=== PATIENT | female | born 1970 | race Caucasian/White ===

== ENCOUNTER 2016-11-13 06:57 | Inpatient (IN) | payer OTHER ==
[2016-11-13] VITALS (7 sets, daily range): BP systolic 127–151; BP diastolic 78–84; PULSE 68–81; RESP 18; Ht 175.3 cm; Wt 88.0 kg
[~2016-11-13] VITALS: Ht 175.3 cm; Wt 88.0 kg
--- NOTE | 2016-11-13 07:11 | ERD ---
ER Documentation Chief Complaint Date/Time DATE: 11/13/16 TIME: 07:07 Chief Complaint MECHANICAL FALL AT STORE HPI This is a 46-year-old female with a known history of hypertension and non- insulin-dependent diabetes mellitus that was brought into the emergency department by EMS after she had a mechanical slip and fall a gas station just prior to arrival. The patient stated there was some gas that was on the floor which resulted in her slipping and landing on her buttocks and hitting her head. She is complaining of a posterior headache. She states the headache is 6 out of 10 in intensity. She has no changes in vision. She has not experienced any nausea or emesis. She does not wear glasses or contacts. She was able to ambulate at the scene but the patient is complaining of lower back pain which she states is dull achy sensation was exacerbated with movement and ambulation. The low back pain is 4 out of 10 in intensity with no numbness or tingling of her lower extremities. She is no numbness or tingling of her upper extremities. She denies any abdominal pain. She indicated she did not take her antihypertensive medication upon awakening this morning that she forgot. She denies any chest pain or pressure that radiates to the neck arm back or jaw ROS All systems reviewed and are negative except as per history of present illness. Medications Home Meds Unable to Obtain Active Prescriptions or Reported Meds Allergies Allergies: Coded Allergies: No Known Allergy (Unverified , 11/13/16) PMhx/Soc Medical and Surgical Hx: pt denies Surgical Hx Hx Miscellaneous Medical Probl: Yes (dm, hyperthyroid) Hx Alcohol Use: No Hx Substance Use: No Hx Tobacco Use: No Smoking Status: Never smoker Physical Exam Vitals Vital Signs Date Time Temp Pulse Resp B/P Pulse Ox O2 Delivery O2 Flow Rate FiO2 11/13/16 08:31 78 15 128/71 100 Room Air 11/13/16 08:08 75 10 174/87 100 Nasal Cannula 2.0 11/13/16 07:14 80 228/105 11/13/16 07:00 98.0 88 18 232/115 99 Physical Exam Constitutional:Well-developed. Well-nourished. HEENT:Normocephalic. Atraumatic.Pupils were equal round reactive to light. Moist mucous membranes.No tonsillar exudates. No nasoseptal hematoma. No hemotympanum. Funduscopy exam showed sharp optic disc bilaterally venous pulsations are present peer Neck: No nuchal rigidity. No lymphadenopathy. No posterior cervical spine tenderness or step-offs. Respiratory: Not using accessory muscles of respiration.Lungs were clear to auscultation bilaterally. No rhonchi. No rales. No wheezing. Cardiovascular: Regular rate regular rhythm.No murmurs. No rubs were appreciated.S1, S2 normal. Distal pulses are palpable 2+ bilaterally. GI: Abdomen was soft. Nontender. Non Distended. No pulsatile abdominal masses or bruits. No rebound. No guarding. Bowel sounds were present and normal. No flank ecchymosis. No periumbilical ecchymosis Muscle skeletal: Full range of motion of both the upper and lower extremities bilaterally.Normal muscle tone.No assymetrical calf tenderness or swelling. Reproducible tenderness over L4-L5 with no tenderness with palpation or percussion of the thoracic spinous processes. Lower extremities are of equal length and symmetrical with no internal or external rotation. Patient was able to ambulate more than 4 steps in the emergency department this did exacerbate pain of her lower lumbar spine. Skin: No petechia, no purpura. No lesions on the palms or the soles of the feet. No maculopapular rash. NEURO: Patient was alert, awake, orientated x3.No facial droop. Gait observed and normal with no ataxia.Speech had regular rate and rhythm. No focal neurological deficits. Result Diagram: 11/13/16 0750 Results 24 hrs Laboratory Tests Test 11/13/16 07:50 Activated Partial Thromboplast Time 34.8Sec Alanine Aminotransferase (ALT/SGPT) 26IU/L Albumin 2.9g/dl Albumin/Globulin Ratio 0.80 Alkaline Phosphatase 130IU/L Anion Gap 14 Aspartate Amino Transf (AST/SGOT) 26IU/L Blood Urea Nitrogen 41mg/dl Calcium Level 8.2mg/dl Carbon Dioxide Level 22mmol/L Chloride Level 110mmol/L Creatinine 4.94mg/dl Direct Bilirubin 0.00mg/dl Globulin 3.60g/dl Glucose Level 116mg/dl INR International Normalized Ratio 0.85 Indirect Bilirubin 0.1mg/dl Potassium Level 4.7mmol/L Prothrombin Time 11.6Sec Prothrombin Time Ratio 0.9 Sodium Level 141mmol/L Total Bilirubin 0.1mg/dl Total Protein 6.5g/dl Troponin I 0.018ng/ml Current Medications Medications (Trade) Dose Ordered Sig/Akila Route PRN Reason Start Time Stop Time Status Last Admin Dose Admin Acetaminophen/ Hydrocodone Bitart (Luray (5/325)) 1 tab ONCE ONCE PO 11/13/16 07:30 11/13/16 07:31 DC 11/13/16 07:20 Clonidine (Catapres) 0.1 mg ONCE ONCE PO 11/13/16 07:30 11/13/16 07:31 DC 11/13/16 07:20 Hydralazine HCl (Apresoline) 10 mg ONCE ONCE IV 11/13/16 08:30 11/13/16 08:31 DC 11/13/16 08:14 Aspirin (Aspirin) 325 mg ONCE ONCE PO 11/13/16 08:30 11/13/16 08:31 DC 11/13/16 08:14 Nitroglycerin (Nitroglycerin (Sl Tab) 0.4 Mg) 1 tab Q5M UP TO 3 DOSES PRN SL CHEST PAIN 11/13/16 09:00 Procedures/MDM This patient presented to the emergency department with blunt head trauma. CT scan of the head showed no intracerebral hemorrhage. I did obtain radiographic imaging of the lumbar spine which did not indicate a compression fracture. The patient received Luray for analgesia control. Lumbar x-ray reviewed by the radiologist indicated the follow: 1. Decreased bone mineral density without radiographic evidence for acute fracture. 2. Degenerative disk disease throughout the lumbar spine most pronounced at L4- 5 with moderate disk space narrowing asymmetric to the right. 3. Cholelithiasis. This patient also presented to the emergency department with severely elevated blood pressure which could have been exacerbation of her pain as well as the patient forgetting to take her antihypertensive medications prior to arrival. However my differential diagnosis included but was not limited to conditions that could end-organ damage such as acute coronary syndrome, acute pulmonary edema, aortic dissection, subarachnoid hemorrhage, intracerebral hemorrhage, cerebral infarction, withdrawal syndromes from beta blockers, or states of catecholamine excess such as pheochromocytoma or drug intoxication. Ancillary lab work was obtained. There was elevation in the BUN and creatinine to suggest acute renal failure. The patient does state she has a history of renal failure but is not on dialysis. She states her electrophysiology technician is at all of you and is unaware of her normal BUN and creatinine level. The cardiac enzyme was normal. 12 Lead EKG tracing ordered and reviewed by myself showed: Normal sinus rhythm of 75 bpm and no arrhythmia. AK interval normal. QRS duration normal. ST segment elevation isolated to lead II with no elevation in aVF or lead III. The ST segment elevation had artifact. There is no reciprocal changes. No ST segment depression. No changes consistent with acute ischemia. Given the changes in the EKG that was read at 756 as an acute MO I did phone the vat cleaner Dr. Pastor. Given the patient's clinical findings and absence of reciprocal changes with ST segment elevation isolated to one lead with underlying artifact a code STEMI was not called as this did not appear to be a result of myocardial ischemia. The patient's blood pressure had improved improved after clonidine but she was given 10 mg of hydralazine and 325 mg of aspirin and NTG. She had been placed on a graduate assistant athletic trainer. I repeated the 12-lead EKG at 8:18 AM. 12 Lead EKG tracing ordered and reviewed by myself showed: Normal sinus rhythm of 79 bpm and no arrhythmia. AK interval normal. QRS duration normal. No ST segment elevation No ST segment depression. No changes consistent with acute ischemia. The patient ancillary laboratory work indicated there was acute renal failure with a BUN of 41 and a creatinine of 4.94. Given that the patient was hypotensive and could not rule out hypertensive emergency at this time as this could be result of end organ damage. She had received IV hydralazine which did improve her blood pressure but the patient will be continued to be monitored with serial 12-lead EKG tracings and further evaluation into the new renal failure and monitoring of the patient's chest pain. The patient will be admitted to the hospitalist Dr. Duong. Departure Diagnosis: Primary Impression: Lumbar sprain Additional Impressions: Blunt head trauma Hypertensive emergency, no CHF Acute renal failure Chest pain Condition: Serious FARZADELLIE HERNANDEZA Nov 13, 2016 07:11
[2016-11-13] MEDS ORDERED: HYDROCODONE/APAP (5/325) TAB PO ONE (07:30)
--- NOTE | 2016-11-13 07:59 | RADRPT ---
PROCEDURE: XR Lumbar Spine. CLINICAL INDICATION: Fall TECHNIQUE: Three views of the lumbar spine are available for review COMPARISON: None available FINDINGS: The normal lumbar lordosis is preserved. The osseous structures are demineralized. There is mild sco liosis convex left. Spondylosis seen throughout the lumbar spine with mild disk space narrowing at at L3-L4 and moderate disk space narrowing at L4-5. Mild loss of height is seen at T11, likely chron ic in nature, although age indeterminate on radiographs. The productive changes seen throughout the lumbar spine. No radiopaque foreign body is identified. The vertebral body heights are all normal. Facet arthropathy seen throughout the lumbar spine. On the frontal view, there is normal alignment . Paraspinous soft tissues are grossly unremarkable. A gallstone projects in the right upper quadra nt. IMPRESSION: 1. Decreased bone mineral density without radiographic evidence for acute fracture. 2. Degenerative disk disease throughout the lumbar spine most pronounced at L4-5 with moderate disk space narrowing asymmetric to the right. 3. Cholelithiasis. RPTAT: RR .John Luque MD, Date Time Electronically viewed and signed by .John Luque MD, on 11/13/2016 07:59 .d/
--- NOTE | 2016-11-13 08:02 | RADRPT ---
PROCEDURE: CT Brain without. CLINICAL INDICATION: Fall TECHNIQUE: A CT of the brain was performed utilizing axial sections from the skull base through th e vertex without contrast. The scan was reviewed in soft tissue brain and high frequency resolution bone algorithm windows. Images were reviewed on a high-resolution PACS workstation. images. The c alculated radiation dose measures 630.20 mGy centimeters. The CTDI measures 44.03 mGy. One or more of the following dose reduction techniques were used: - Automated exposure control. - Adjustment of the mA and/or kV according to patient size . - Use of iterative reconstruction technique. Images were reviewed on a high-resolution PACS workstation COMPARISON: None available FINDINGS: The ventricles and sulci are symmetric and normal in size and morphology. There is no evidence of i ntracranial hemorrhage, mass effect, edema or midline shift. No abnormal intra-axial or extra-axial fluid collections are seen. The density of the brain is normal and the zimmer/white matter different iation is well preserved. Brainstem and posterior fossa structures are intact. The cerebellar tons ils are minimally low-lying. The osseous structures and visualized paranasal sinuses are unremarkabl e. The surrounding soft tissue scalp and bony calvarium are intact and normal. IMPRESSION: 1. No acute intracranial findings. RPTAT: RR .John Luque MD, Date Time Electronically viewed and signed by .John Luque MD, MD on 11/13/2016 08:02 .d/
[2016-11-13] MEDS ORDERED: ASPIRIN 325 MG TAB PO ONE (08:30)
[2016-11-13] MEDS ORDERED: hydrALAzine 20 MG INJ IV ONE (08:30)
[2016-11-13 08:36] LABS: ALBUMIN 2.9 g/dl (3.3-4.9); POTASSIUM 4.7 mmol/L (3.5-5.1)
[2016-11-13 08:38] LABS: CREATININE 4.94 mg/dl (0.44-1.00)
[2016-11-13 08:39] LABS: ALBUMIN/GLOBULIN RATIO 0.8; BILIRUBIN,INDIRECT 0.1 mg/dl (0-1.1); BILIRUBIN,TOTAL 0.1 mg/dl (0.2-1.3); CALCIUM 8.2 mg/dl (8.4-10.2); TOTAL PROTEIN 6.5 g/dl (6.1-8.1)
[2016-11-13 08:51] LABS: TROPONIN-I 0.018 ng/ml (0.00-0.12)
[2016-11-13 08:54] LABS: INR 0.85; PROTIME 11.6 Sec (12.2-14.2); PT RATIO 0.9
[2016-11-13 08:55] LABS: PARTIAL THROMBOPLASTIN TIME 34.8 Sec (25.0-35.0)
[2016-11-13] MEDS ORDERED: NITROGLYCERIN (SL) 0.4 MG TAB SL PRN ×2 (09:00→11:00)
[2016-11-13 09:15] LABS: BASOPHILS % 0.4 % (0.0-2.0); EOSINOPHILS # 0.2 10^3/ul (0.0-0.5); EOSINOPHILS % 2.1 % (0.0-7.0); HEMATOCRIT 41.5 % (37.0-47.0); HEMOGLOBIN 13.9 g/dl (12.0-16.0); LYMPHOCYTES # 1.5 10^3/ul (0.8-2.9); LYMPHOCYTES % 12.4 % (15.0-51.0); MEAN CORPUSCULAR HEMOGLOBIN 31.3 pg (29.0-33.0); MEAN CORPUSCULAR HGB CONC 33.6 g/dl (32.0-37.0); MEAN CORPUSCULAR VOLUME 93.1 fl (82.0-101.0); MEAN PLATELET VOLUME 8.5 fl (7.4-10.4); MONOCYTE # 0.4 10^3/ul (0.3-0.9); MONOCYTES % 3.5 % (0.0-11.0); NEUTROPHIL # 9.7 10^3/ul (1.6-7.5); NEUTROPHILS % 81.6 % (39.0-77.0); PLATELET COUNT 242 10^3/UL (140-440); RED BLOOD COUNT 4.46 10^6/ul (4.20-5.40); RED CELL DISTRIBUTION WIDTH 15.3 % (11.5-14.5); UNCORRECTED WBC 11.9 10^3/ul (4.8-10.8); WHITE BLOOD COUNT 11.9 10^3/ul (4.8-10.8)
[2016-11-13 09:29] LABS: CONDITION 1; LH ANALYZER COMMENTS 1
[2016-11-13] MEDS ORDERED: ACETAMINOPHEN 325 MG TAB PO PRN ×2 (09:30→11:00)
[2016-11-13] MEDS ORDERED: ONDANSETRON 4 MG INJ IV PRN ×2 (09:30→11:00)
[2016-11-13] MEDS ORDERED: SOD CHLORIDE 0.45% 1,000 ML IV SCH (10:55)
[2016-11-13] MEDS ORDERED: LORAZEPAM 0.5 MG TAB PO PRN (11:00)
[2016-11-13] MEDS ORDERED: hydrALAzine 20 MG INJ IV PRN ×2 (11:00→21:00)
[2016-11-13] MEDS ORDERED: DOCUSATE SODIUM 100 MG CAP PO PRN (11:00)
[2016-11-13] MEDS ORDERED: ACETAMINOPHEN 650 MG SUPP PR PRN (11:00)
[2016-11-13] MEDS ORDERED: NACL 0.9% 3 ML SYG IV SCH (11:00)
[2016-11-13] MEDS ORDERED: BISACODYL (EC) 5 MG TAB PO PRN (11:00)
[2016-11-13 12:19] LABS: CK-MB 2.39 ng/ml (0.0-2.4)
[2016-11-13] MEDS: OXYCODONE/ACETAMINOPHEN (5/325) TAB PO PRN ×2 (12:21→20:11)
[2016-11-13 12:22] LABS: TROPONIN-I 0.021 ng/ml (0.00-0.12)
[2016-11-13] MEDS ORDERED: SOD CHLORIDE 0.45% 1,000 ML IV ONE (12:34)
[2016-11-13] MEDS: morphine 2 MG INJ IV PRN (14:16)
--- NOTE | 2016-11-13 14:54 | CONS ---
DATE OF ADMISSION: 11/13/2016 DATE OF CONSULTATION: 11/13/2016 NEPHROLOGY CONSULTATION REASON FOR CONSULTATION: Chronic kidney disease. HISTORY OF PRESENT ILLNESS: This is a 46-year-old female with a past medical history of CKD stage V with a baseline EGFR of around 10 mL per minute secondary to diabetic nephropathy, history of hyper tension, history of diabetes who presents to [facility] after undergoing a mechani avni fall. The patient states she was at the gas station where she slipped and fell. The patient sa id she landed on her buttocks and hit her head. She was complaining of headache. Following the fal l, the paramedics arrived and the patient was brought to the [facility] Emergency Room. Up on arrival, patient had a CT scan of the brain which showed no acute findings. A lumbar x-ray was a lso performed which showed no acute fracture. There is evidence of cholelithiasis. In the emergenc y room, the patient was hypertensive with a systolic pressure of 200. The patient was given hydrala zine, clonidine, Barnhart, and admitted up to telemetry for further evaluation. In terms of the patient's medical history, she has underlying history of CKD stage V with a GFR of 1 0 mL per minute. She is followed by concrete block plant supervisor at [facility]. The patient is pending a fistula p lacement in December with the anticipation of starting hemodialysis later this year. Currently, the pa hattie denies any overt uremic symptoms. Denies any nausea, vomiting, no metallic taste in the mouth no overt fatigue. The patient has a good appetite. Denies any shortness of breath. PAST MEDICAL HISTORY: As stated above, history of CKD stage V, history of hypertension, history of diabetes, history of anemia, history of mineral bone disorder. PAST SURGICAL HISTORY: None. ALLERGIES: NO KNOWN DRUG ALLERGIES. FAMILY HISTORY: No family history of kidney disease, heart disease. SOCIAL HISTORY: Does not drink, smoke, or do drugs. MEDICATIONS: The patient's medications have been reviewed. REVIEW OF SYSTEMS: A 14-point review of systems was conducted. Pertinent positives as stated in HP I, otherwise negative. PHYSICAL EXAMINATION: VITAL SIGNS: Blood pressure is currently 120/72, respirations 18, pulse 77, temperature 98.6. HEENT: Head is normocephalic. NECK: Supple. HEART: Regular rate. LUNGS: Show diminished breath sounds at the base. ABDOMEN: Soft, nontender to palpation. No rebound or guarding. EXTREMITIES: Negative for clubbing, cyanosis, no edema. DERMATOLOGIC: No rashes. MUSCULOSKELETAL: The patient has tenderness to palpation on the lumbosacral region. NEUROLOGIC: No focal deficits. LABORATORY DATA: The patient has a white count of 11.9, hemoglobin 13.9, hematocrit is 41.5, platel et count 242. Sodium 141, potassium 4.7, chloride 110, BUN 41, creatinine 4.94. BNP of 13,000. Al kaline phosphatase 130. ASSESSMENT AND PLAN: This is a 46-year-old female who presents with: 1. Progressive chronic kidney disease stage V with a baseline EGFR around 10 mL per minute. Curren tly, the patient's renal function appears to be at baseline. Creatinine of 4.94 consistent with an EGFR of 10 mL per minute done by CKD-EPI formulation. The patient had no signs of overt uremia. Th e patient's electrolytes are within normal limits. The patient does not clinically appear to be vol ume overloaded. Recommendation at this point is to continue supportive care. We will continue to r enally dose all meds, avoid nephrotoxins. Will continue gentle IV fluids for 1 liter of half NS. 2. Otherwise will continue to monitor closely. There is no immediate need for any renal replacemen t therapy or dialysis at this time. 3. Mineral bone disorder. We will check a calcium and phosphorus level. Will hold phosphate binde rs at this time. 4. Hypertension in part due to underlying pain. The patient is currently normotensive. Will grace nue pain control. Will monitor blood pressure closely on IV fluids. 5. Mechanical fall with a lumbar strain. Will Continue pain medications. X-rays reviewed 6. Blunt head trauma secondary followup. Continue supportive care. Continue pain control. CT sca n shows no acute pathology. 7. Anxiety disorder. Continue patient on Ativan p.r.n. Thank you, Dr. De Paz for this interesting consult. It will be a pleasure to follow the patient with you throughout the hospital course. Dictated By: DALE VEGA/NTS Conf#: [id number] DID#: [id number]
--- NOTE | 2016-11-13 16:01 | HP ---
DATE OF ADMISSION: 11/13/2016 CLINICAL OUTCOMES MANAGER: Cardiology. CHIEF COMPLAINT: Low back pain and chest discomfort. HISTORY OF PRESENT ILLNESS: This is a 46-year-old female who is a very poor historian with past [facility] history of hypertension and renal insufficiency who was at a gas station and apparently patient slipped and fell on her back. There was no trauma to her head. There was no loss of consciousness . There was no urinary or fecal incontinence. There was no seizure activity. The patient fell on her lumbosacral area and secondary to pain 911 was called and patient was brought into the emergency room at [facility] where she did complain of having chest discomfort. Troponin w as found to be negative. EKG showed normal sinus rhythm ventricle 75, no arrhythmia, ST segment miguel vation isolated in lead 2 with no elevation in aVF or lead 3. No ST segment elevation was artifact. There was no reciprocal changes, no ST segment depressions, no changes consistent with acute ische bk. Dr. Pastor of cardiology was called in the course of the emergency room secondary to ST segment e levation in lead 2 and after evaluation of the EKG, code STEMI was called off. The patient was xochitl melvin with clonidine, aspirin 325 mg, and nitroglycerin and was placed on cardiac monitoring and trop onin was found to be negative. The patient at this time has been admitted to telemetry floor. Her WBC is found to be mildly elevated at 11.9, BUN 41, creatinine 4.94. BNP 13,800. CT of the brain showed no acute intracranial finding and lumber spine x-ray showed decreased bone mi neral density without radiographic evidence of acute fracture, degenerative disk disease throughout the lumbar spine, most pronounced at L4-L5 with moderate disk space narrowing asymmetric to the righ t cholelithiasis. The patient was placed on pain medication and at this time denies having any ches t pain, shortness of breath, nausea, vomiting, diarrhea. No headache, dizziness, lightheadedness. No change in visual acuity, diplopia, photophobia. No abdominal pain, nausea, vomiting, diarrhea. No change in the color of stool. No thoracic pain. The patient continues to complain of having low back pain. There is no numbness or weakness in her extremities. PAST MEDICAL AND SURGICAL HISTORY: 1. Hypertension. 2. Renal insufficiency. MEDICATIONS: The patient does not recall her home medications. No noted phone number of her pharm acy. SOCIAL HISTORY: Negative x3 for smoking, alcohol, illicit drugs. FAMILY HISTORY: Positive for hypertension. REVIEW OF SYSTEMS: As above per HPI, otherwise 12 review of systems has been found to be negative. PHYSICAL EXAMINATION: VITAL SIGNS: Temperature upon arrival to emergency room, temperature 98, pulse 88, respiration 18, blood pressure 232/115, saturation 99%. At this time, temperature 98.0, pulse 87, respiration 18, b lood pressure 131/79, oxygen 99% on room air. GENERAL APPEARANCE: The patient is lying in bed comfortably without any distress. She is awake, al ert, oriented. She is able to answer my questions properly. EYES AND ENT: Conjunctivae and lids are normal. Pupils are normal. Extraocular normal. Hearing g rossly normal. Lips are normal. Oral mucosa is moist. NECK: Supple. Trachea is midline. No lymphadenopathy. RESPIRATORY: Effort is normal. Clear to auscultation bilaterally. CARDIOVASCULAR: Normal S1, S2. Regular rhythm and rate. No murmur, no bruits, no edema. Peripher al pulses, radial pulses palpable. Cap refill is normal. CHEST: Normal expansion of thorax during inspiration. GASTROINTESTINAL: Abdomen is soft, nontender, not distended. Bowel sounds present. No guarding, n o rebound. GENITOURINARY: Deferred. MUSCULOSKELETAL: Upper extremities within normal limits. Lower extremities, decreased range of mot ion secondary to the low back pain. There is no deformity. Sensory is intact. NEUROLOGIC: Cranial nerves II through XII are grossly intact. PSYCHIATRIC: She is awake, alert, oriented. LABORATORY WORK AND IMAGING: Sodium 141, potassium 4.7, chloride 110, bicarbonate 22, BUN 41, creat inine 4.94, glucose 116, calcium 8.2, total bilirubin 0.1, alkaline phosphatase of 130. Troponin ne gative x2. BNP 13,800. Albumin 2.9. PT 11.6, INR 0.85. WBC 11.9, hemoglobin 13.9, hematocrit 41. 5, platelets 242. ASSESSMENT AND PLAN: 1. Low back pain status post fall and no evidence of fracture on this lumbar spine x-ray. 2. Atypical chest pain. This is likely secondary to low back pain, although the patient has a hist ory of hypertension. We will admit the patient to rule out acute coronary syndrome. First 2 tropon ins were negative. Cardiology has been consulted. The patient has been started on aspirin. We sharad l obtain 2D echocardiogram. Follow up cardiology recommendation. As stated above in the H and P, sudheer kuhn was found to have abnormal EKG, in the course of emergency room it was found to be artifact an d there is no evidence of ST elevation. 3. Chronic renal insufficiency. Patient is to follow up with nephrology as outpatient at [facility]. 4. Essential hypertension, better controlled. 5. Leukocytosis. This is likely reactive. We will continue to monitor. The patient is afebrile. 4. Congestive heart failure. Obtain of 2D echocardiogram. At this time, refrain from using any di uretic or ALMITA inhibitor secondary to patient's renal insufficiency. Follow up nephrology recommenda tion. 5. For deep venous thrombosis prophylaxis on heparin. 6. For gastrointestinal prophylaxis, PPI. Total amount of time spent for evaluation and admission workup 40 minutes. Dictated By: YU PINK/LAWRENCE Conf#: [id number] DID#: [id number]
[2016-11-13 17:08] LABS: CK-MB 2.06 ng/ml (0.0-2.4)
[2016-11-13 17:11] LABS: TROPONIN-I 0.022 ng/ml (0.00-0.12)
--- NOTE | 2016-11-13 17:24 | RADRPT ---
Echocardiogram Report Patient Name: STEFANIE TYLER Gender: Female Date: 1970 Study Date: 13-Nov-2016 Director Corporate Communications: Gideon [facility] Location: [id number] Ref. Physician: YU HUBBARD Quality: Technically Difficult Study Procedures: Transthoracic echocardiogram with complete 2D, M-Mode, and doppler examination. Indications: Chest Pain. 2D/M Mode Doppler Measurement Value Normal Ranges Measurement Value Normal Ranges LVIDd 2D 5.1 3.5 - 5.6 cm AV Mean René 1.5 m/sec LVIDs 2D 3.4 2.1 - 4.1 cm AV Mean PG 11.1 mmHg LVPWd 2D 1.4 0.6 - 1.1 cm AV Peak René 2.3 m/sec IVSd 2D 1.3 0.6 - 1.1 cm AV Peak PG 20.9 mmHg AoR Diam 2D 2.6 2.0 - 3.7 cm AV VTI 47.4 cm EDV 2D 125.8 cm3 LVOT Peak René 0.8 m/sec ESV 2D 40.9 cm3 LVOT Peak PG 2.8 mmHg LA Dimen 2D 3.3 2.3 - 4.0 cm MV E Peak René 0.7 m/sec MV A Peak René 1.1 m/sec MV E/A 0.7 MV Decel Time 219 msec MV Decel Hancock 3 MV E/A 0.7 Findings Left Ventricle: Normal left ventricular systolic function. Normal left ventricular cavity size. Mild concentric left ventricular hypertrophy. Ejection fraction is visually estimated at 5560 %. Tissue Doppler/Mitral Doppler indices are consistent with impaired relaxation (Stage I diastolic dysfunction). Right Ventricle: Normal right ventricular size. Normal right ventricular systolic function. Left Atrium: The left atrium is normal in size. Right Atrium: The right atrium is normal in size. Mitral Valve: Mild mitral leaflet calcification. Trace mitral regurgitation. Aortic Valve: Aortic valve not well visualized. No hemodynamically significant aortic stenosis by doppler. Trace aortic valve regurgitation. Tricuspid Valve: Tricuspid valve not well visualized. There is trace tricuspid regurgitation. Pulmonic Valve: There is trace pulmonic regurgitation. Pericardium: Normal pericardium with no significant pericardial effusion. Aorta: Normal aortic root. IVC: The IVC is not well visualized. Conclusions 1.The left ventricle is normal in size and systolic function. 2.Estimated left ventricular ejection fraction of 55-60%. 3.Mild left ventricular diastolic dysfunction. Electronically Signed By: Mateus Puentes 13-Nov-2016 17:24:01 -0800 Patient Name: STEFANIE TYLER Study Date: 13-Nov-[id number]
--- NOTE | 2016-11-13 19:26 | CONS ---
Date/Time of Note Date/Time of Note DATE: 11/13/16 TIME: 19:17 Assessment/Plan Assessment/Plan Chief Complaint/Hosp Course Assessment: Status post fall - appears mechanical, not syncope Accelerated hypertension - improved with anti-hypertensive medications and pain control Diabetes mellitus Chronic kidney disease Recommendations: -echocardiogram showed LVEF 55-60%, mild diastolic dysfunction -no additional cardiac work up at this time -hydralazine 25mg PO Q8hr, additional IV PRN (patient does not remember her outpatient medications) Problems: Consultation Date/Type/Reason Admit Date/Time Nov 13, 2016 at 09:16 Type of Consultation: Cardiology Reason for Consultation accelerated hypertension Referring Provider: YU HUBBARD MD Hx of Present Illness The patient is a 46 year-old female who presented status post fall. She reports being at the gas station when she slipped on a puddle of gasoline and fell on her back, sustaining head trauma. Head CT and lumbar spine x-ray did not show any acute fractures or injuries. She denies lightheadedness, presyncope, syncope, or palpitations. On presentation, she may have endorsed having chest pain, although currently she reports that she was actually having headache and lower extremity pain, not chest pain. There was concern about ST-elevations on the initial EKG, although this was due to artifact and not seen on repeat EKG. Her troponins have been negative. 14 point review of systems negative other than per HPI. Past Medical History Hypertension Diabetes mellitus Chronic kidney disease Past Surgical History Past Surgical Hx: no surgical history Family History Significant Family History: diabetes Social History Alcohol Use: none Smoking Status: Never smoker Drug Use: none Exam/Review of Systems Vital Signs Vitals Vital Signs Date Time Temp Pulse Resp B/P Pulse Ox O2 Delivery O2 Flow Rate FiO2 11/13/16 16:46 98.0 87 18 127/78 98 11/13/16 14:37 Nasal Cannula 2.0 Exam Constitutional: alert, obese Psych: nl mood/affect, no complaints Head: atraumatic, normocephalic Eyes: nl conjunctiva, nl lids ENMT: nl external ears & nose, nl nasal mucosa & septum Neck: non-tender, supple, No jvd Respiratory: clear to auscultation, normal air movement Cardiovascular: regular rate and rhythm Gastrointestinal: non-tender, soft Musculoskeletal: nl extremities to inspection Extremities: No clubbing, No cyanosis, No edema Results Result Diagram: 11/13/16 0750 11/13/16 0750 Results 24 hrs Laboratory Tests Test 11/13/16 07:50 11/13/16 11:21 11/13/16 16:20 Activated Partial Thromboplast Time 34.8 Alanine Aminotransferase (ALT/SGPT) 26 Albumin 2.9 L Albumin/Globulin Ratio 0.80 Alkaline Phosphatase 130 H Anion Gap 14 Aspartate Amino Transf (AST/SGOT) 26 B-Type Natriuretic Peptide 20566 H Basophils # 0.0 Basophils % 0.4 Blood Morphology Comment Blood Urea Nitrogen 41 H Calcium Level 8.2 L Carbon Dioxide Level 22 Chloride Level 110 Creatinine 4.94 H Direct Bilirubin 0.00 Eosinophils # 0.2 Eosinophils % 2.1 Globulin 3.60 H Glucose Level 116 Hematocrit 41.5 Hemoglobin 13.9 INR International Normalized Ratio 0.85 Indirect Bilirubin 0.1 Lymphocytes # 1.5 Lymphocytes % 12.4 L Mean Corpuscular Hemoglobin 31.3 Mean Corpuscular Hemoglobin Concent 33.6 Mean Corpuscular Volume 93.1 Mean Platelet Volume 8.5 Monocytes # 0.4 Monocytes % 3.5 Neutrophils # 9.7 H Neutrophils % 81.6 H Nucleated Red Blood Cells # 0.0 Nucleated Red Blood Cells % 0.0 Platelet Count 242 Potassium Level 4.7 Prothrombin Time 11.6 L Prothrombin Time Ratio 0.9 Red Blood Count 4.46 Red Cell Distribution Width 15.3 H Sodium Level 141 Total Bilirubin 0.1 L Total Protein 6.5 Troponin I 0.018 0.021 0.022 White Blood Count 11.9 H Creatine Kinase 66 63 Creatine Kinase Index 3.6 3.3 Creatinine Kinase MB (Mass) 2.39 2.06 Medications Medications Current Medications Lorazepam (Ativan) 0.5 mg Q8H PRN PO ANXIETY; Start 11/13/16 at 11:00 Ondansetron HCl (Zofran Inj) 4 mg Q6H PRN IV NAUSEA AND/OR VOMITING; Start at 11:00 Aspirin (Aspirin) 81 mg DAILY PO ; Start 11/14/16 at 09:00 Nitroglycerin (Nitroglycerin (Sl Tab) 0.4 Mg) 1 tab Q5M PRN SL CHEST PAIN; Start 11/13/16 at 11:00 Acetaminophen (Tylenol Tab) 650 mg Q6H PRN PO PAIN LEVEL 1-3 OR FEVER; Start at 11:00 Acetaminophen (Tylenol Supp) 650 mg Q6H PRN [place] PAIN LEVEL 1-3 OR FEVER; Start 11/13/16 at 11:00 Oxycodone/ Acetaminophen (Percocet (5/ 325)) 1 tab Q6H PRN PO PAIN LEVEL 4-6 Last administered on 11/13/16 12:21; Admin Dose 1 TAB; Start 11/13/16 at 11:00 Morphine Sulfate (morphine) 1 mg Q4H PRN IV PAIN LEVEL 7-10 Last administered on 11/13/16 14:16; Admin Dose 1 MG; Start 11/13/16 at 11:00 Docusate Sodium (Colace) 100 mg Q12H PRN PO CONSTIPATION; Start 11/13/16 at 11: 00 Bisacodyl (Dulcolax) 5 mg DAILY PRN PO CONSTIPATION; Start 11/13/16 at 11:00 Pantoprazole (Protonix Tab) 40 mg DAILY@06 PO ; Start 11/14/16 at 06:00 Heparin Sodium (Porcine) (Heparin (5000 Units/0.5 ml)) 5,000 unit Q12 SC ; Start 11/13/16 at 21:00 Metoprolol Tartrate (Lopressor) 25 mg BID PO ; Start 11/13/16 at 21:00 Hydralazine HCl 10 mg 10 mg Q6H PRN IV ELEVATED BLOOD PRESSURE; Start 11/13/16 at 11:00 Sodium Chloride (1/2 NS) 1,000 ml @ 60 mls/hr [id number] ONCE IV Last administered on 11/13/16 12:34; Admin Dose 60 MLS/HR; Start 11/13/16 at 12:34; Stop 11/14/16 at 05:13 CLIFTON BARRETO MD Nov 13, 2016 19:26
[2016-11-13] MEDS: HEPARIN 5,000 UNIT/0.5 ML SYG SC SCH (20:19)
[2016-11-13] MEDS ORDERED: METOPROLOL 25 MG TAB PO SCH (21:00)
[2016-11-13 23:43] LABS: CK-MB 1.62 ng/ml (0.0-2.4)
[2016-11-13 23:46] LABS: TROPONIN-I 0.017 ng/ml (0.00-0.12)
[2016-11-14] VITALS (8 sets, daily range): BP systolic 126–189; BP diastolic 70–98; PULSE 72–91; RESP 18–20
[2016-11-14] MEDS: morphine 2 MG INJ IV PRN (01:19)
[2016-11-14 05:05] LABS: ADD UMIC YES; URINE BILIRUBIN (Dip) NEGATIVE (NEGATIVE); URINE BLOOD (Dip) 1+ (NEGATIVE); URINE COLOR LT. YELLOW (YELLOW); URINE KETONES (Dip) NEGATIVE (NEGATIVE); URINE LEUKOCYTE ESTERASE (Dip) NEGATIVE (NEGATIVE); URINE NITRITE (Dip) NEGATIVE (NEGATIVE); URINE TOTAL PROTEIN (Dip) 4+ (NEGATIVE); URINE UROBILINOGEN (Dip) 0.2 E.U./dL (0.1-1.0)
[2016-11-14 05:17] LABS: BACTERIA,URINE OCCASIONAL; SQUAMOUS EPITHELIAL CELL,UR OCCASIONAL
[2016-11-14] MEDS ORDERED: PANTOPRAZOLE (EC) 40 MG TAB PO SCH (06:00)
[2016-11-14 07:08] LABS: BASOPHILS % 0.5 % (0.0-2.0); EOSINOPHILS # 0.2 10^3/ul (0.0-0.5); EOSINOPHILS % 2.5 % (0.0-7.0); HEMATOCRIT 34.7 % (37.0-47.0); HEMOGLOBIN 12.1 g/dl (12.0-16.0); LYMPHOCYTES # 2.4 10^3/ul (0.8-2.9); LYMPHOCYTES % 33.8 % (15.0-51.0); MEAN CORPUSCULAR HEMOGLOBIN 31.8 pg (29.0-33.0); MEAN CORPUSCULAR HGB CONC 34.9 g/dl (32.0-37.0); MEAN CORPUSCULAR VOLUME 91.2 fl (82.0-101.0); MEAN PLATELET VOLUME 8.4 fl (7.4-10.4); MONOCYTE # 0.4 10^3/ul (0.3-0.9); MONOCYTES % 5.6 % (0.0-11.0); NEUTROPHIL # 4.2 10^3/ul (1.6-7.5); NEUTROPHILS % 57.6 % (39.0-77.0); PLATELET COUNT 234 10^3/UL (140-440); RED CELL DISTRIBUTION WIDTH 15.6 % (11.5-14.5); UNCORRECTED WBC 7.2 10^3/ul (4.8-10.8); WHITE BLOOD COUNT 7.2 10^3/ul (4.8-10.8)
[2016-11-14 07:12] LABS: POTASSIUM 4.7 mmol/L (3.5-5.1)
[2016-11-14 07:14] LABS: CREATININE 4.72 mg/dl (0.44-1.00)
[2016-11-14 07:15] LABS: CHOL/HDL RATIO 3.6 RATIO; MAGNESIUM 2.3 mg/dl (1.7-2.5)
[2016-11-14 07:19] LABS: CONDITION 1; LH ANALYZER COMMENTS 1
[2016-11-14 07:45] LABS: THYROID STIMULATING HORMONE 16.8 MIU/L (0.465-4.680)
[2016-11-14] MEDS: HEPARIN 5,000 UNIT/0.5 ML SYG SC SCH (08:59)
[2016-11-14] MEDS ORDERED: ASPIRIN 81 MG TAB PO SCH (09:00)
--- NOTE | 2016-11-14 10:22 | PDOCDIS ---
Discharge Instructions CONDITION Patient Condition: Good HOME CARE INSTRUCTIONS: Special Diet: Cardiac and Renal Diet ACTIVITY: Activity Restrictions: Slowly Increase Activity Rest between Activity Avoid heavy lifting Do not Drive Keep Limb Elevated FOLLOW UP/APPOINTMENTS Appointments Follow-up with primary care physician as outpatient Follow up with nephrology as outpatient Follow up with blood bank laboratory technologist as outpatient YU HUBBARD MD Nov 14, 2016 10:22
[2016-11-14] MEDS ORDERED: SIMV5TAB50 PO (10:28)
[2016-11-14] MEDS ORDERED: SVL400T PO (10:28)
[2016-11-14] MEDS ORDERED: ASPI81TA3 PO (10:28)
[2016-11-14] MEDS ORDERED: Oxycodone/Acetamin (5/325) PO (10:28)
[2016-11-14] MEDS ORDERED: HYDR-3671 PO (10:28)
--- NOTE | 2016-11-14 10:56 | PN ---
DATE: 11/13/2016 SUBJECTIVE: The patient continues to complain of general body pain and back pain. No other acute e vents noted. No hemoptysis, hematemesis or hematochezia. OBJECTIVE: VITAL SIGNS: Blood pressure 169/60, respirations 20, pulse 76, temperature 98.7. HEENT: Head is normocephalic. NECK: Supple. HEART: Regular rate. LUNGS: Show diminished breath sounds at base. ABDOMEN: Soft, nontender to palpation. No rebound or guarding. EXTREMITIES: Negative for clubbing, cyanosis, no edema. DERMATOLOGIC: No rashes. MUSCULOSKELETAL: Positive tenderness to palpation in the lower spine. DERMATOLOGIC: No rashes. NEUROLOGIC: No focal deficits. LABORATORY DATA: Shows a sodium of 137, potassium 4.7, chloride 108, BUN 42, creatinine 4.72. Whit e count 7.2, hemoglobin 12.1, hematocrit 34.7, platelet count is 234. ASSESSMENT AND PLAN: 1. Chronic kidney disease stage V with a baseline EGFR around 10 mL per minute. The patient's curr [facility] renal function appears to be at baseline. The patient at this point has no overt signs of uremi a. The patient does not appear to be volume overloaded. At this point, would continue current xochitl tment plan. Continue supportive care, renally dose all meds, avoid nephrotoxins. The patient does not need renal replacement therapy at this time. We will continue to monitor closely. 2. Hypertension. Etiology is multifactorial due to underlying pain. Continue current blood pressu re regimen. Continue pain control. 3. Mineral bone disorder. The patient is hypophosphatemic. We will start the patient on low-dose phosphate binders, Renagel 800 mg t.i.d. with meals. 4. Mechanical fall with lumbar strain. Continue physical therapy. Continue medical management. 5. Anxiety disorder. Continue Ativan. 6. Diabetes. Continue Accu-Cheks and insulin sliding scale. Dictated By: DALE VEGA/LAWRENCE Conf#: [id number] DID#: [id number]
[2016-11-14] MEDS ORDERED: SEVELAMER 400 MG TAB PO SCH (11:50)
--- NOTE | 2016-11-14 12:12 | CONS ---
Date/Time of Note Date/Time of Note DATE: 11/14/16 TIME: 12:04 Assessment/Plan Assessment/Plan Problems: (1) Abnormal thyroid blood test Status: Acute Comment: Pt. reports h/o hypothyroidism and reports adherence w/ her med but impossible to determine what this is or what the dosage is. Assuming the dose was not recently increased, she obviously needs more. However, cannot change it w/o knowing what the patient takes now. Advise pt. to inform her mandarin tutor in 5 days that TSH was elevated and likely needs to change dose of LT4. Ok for d/c home from endo standpoint. (2) Type 2 diabetes mellitus with diabetic chronic kidney disease Status: Chronic Comment: Prolongation of insulin action has put her DM into remission. On no meds. Monitor glucose only. Qualifiers: Consultation Date/Type/Reason Admit Date/Time Nov 13, 2016 at 09:16 Date of Consultation: Nov 14, 2016 Type of Consultation: Endocrinology Reason for Consultation Elevated TSH Referring Provider: YU HUBBARD MD Hx of Present Illness 46 y/o H F w/ h/o T2DM, HTN, hyperlipidemia, hypothyroidism, now w/ nearly ESRD due to chronic DM out of control (OOC). Pt. reports was in [place] until 2 days ago when she was putting gas in her car and slipped and fell injuring her buttock. Came to [facility] ER for treatment of lumbar strain. However, in ER was found to be profoundly hypertensive. In addition, pt. did not give h/o CKD to ER-MD and she felt pt. had ARF. Pt. admitted. Now known pt. has CKD and is planning upcoming fistula. Pt. also optimized by cards for her BP. Ready for d /c but found to have elevated TSH of 16. Endo called. Although pt. reports h/ o hypothyroidism, does not remember name of her med or dose. Reports f/u w/ her mandarin tutor in 5 days who does adjust thyroid med. Constitutional: improved, no complaints Eyes: no complaints ENT: no complaints Respiratory: no complaints Cardiovascular: no complaints Gastrointestinal: no complaints Genitourinary: no complaints Musculoskeletal: back pain (bruised lumbar region) Neurologic: no complaints Psychological: nl mood/affect, no complaints Past Medical History Medical History: diabetes, high cholesterol, hypertension, hypothyroid, renal disease Past Surgical History Past Surgical Hx: no surgical history Family History Significant Family History: diabetes Social History b. Vickie, [place], [place] [facility] [place], works as nanny, , no children Alcohol Use: sober Smoking Status: Former smoker Drug Use: none Exam/Review of Systems Vital Signs Vitals VS - Last 72 Hours, by Label Date Time Temp Pulse Resp B/P Pulse Ox O2 Delivery O2 Flow Rate FiO2 11/14/16 08:43 73 11/14/16 07:40 98.7 76 20 169/86 98 11/14/16 04:01 72 11/14/16 03:50 98.2 76 18 126/72 98 11/14/16 00:59 98.0 75 18 128/70 97 11/14/16 00:07 75 11/13/16 21:00 Nasal Cannula 2.0 11/13/16 20:07 72 11/13/16 19:59 97.9 73 18 151/84 98 11/13/16 16:46 98.0 87 18 127/78 98 11/13/16 16:07 68 11/13/16 14:37 Nasal Cannula 2.0 11/13/16 12:48 98.0 87 18 131/78 99 11/13/16 12:32 76 11/13/16 10:35 81 11/13/16 09:53 77 18 120/72 100 Room Air 11/13/16 08:31 78 15 128/71 100 Room Air 11/13/16 08:08 75 10 174/87 100 Nasal Cannula 2.0 11/13/16 07:14 80 228/105 11/13/16 07:00 98.0 88 18 232/115 99 Vital Signs Date Time Temp Pulse Resp B/P Pulse Ox O2 Delivery O2 Flow Rate FiO2 11/14/16 08:43 73 11/14/16 07:40 98.7 20 169/86 98 11/13/16 21:00 Nasal Cannula 2.0 Intake and Output 11/13/16 11/13/16 11/14/16 15:00 23:00 07:00 Intake Total 400 ml Output Total 1000 ml Balance -600 ml Exam Constitutional: alert, obese, oriented Psych: nl mood/affect, no complaints Eyes: EOMI, PERRL, nl conjunctiva, nl lids, nl sclera ENMT: mucosa pink and moist, nl external ears & nose Neck: non-tender, supple, No bruits, No masses, No thyromegaly Respiratory: clear to auscultation, normal air movement Cardiovascular: nl pulses, regular rate and rhythm, No edema, No murmurs/extra sounds, No rub Gastrointestinal: bowel sounds, nl liver, spleen, non-tender, soft, No mass, No rebound or guarding Musculoskeletal: nl extremities to inspection Extremities: normal pulses, No clubbing, No cyanosis, No edema Neurological: FIELD SERVICE COORDINATOR II-XII intact, nl mental status, nl speech, nl strength Results Result Diagram: 11/14/1615 11/14/1615 Results 24 hrs Laboratory Tests Test 11/13/16 16:20 11/13/16 23:00 11/14/16 01:27 11/14/16 06:15 Creatine Kinase 63 54 Creatine Kinase Index 3.3 3.0 Creatinine Kinase MB (Mass) 2.06 1.62 Troponin I 0.022 0.017 Urine Bacteria OCCASIONAL Urine Bilirubin NEGATIVE Urine Clarity CLEAR Urine Color LT. YELLOW Urine Glucose 0.25% H Urine Hemoglobin 1+ H Urine Hyaline Casts OCCASIONAL Urine Ketones NEGATIVE Urine Leukocyte Esterase NEGATIVE Urine Microscopic RBC 2-5 Urine Microscopic WBC 2-5 Urine Nitrite NEGATIVE Urine Random Creatinine 89.45 Urine Random Sodium 59 Urine Specific [place] 1.020 Urine Squamous Epithelial Cells OCCASIONAL Urine Total Protein Urine Urobilinogen 0.2 E.U./dL Urine pH 6.5 Anion Gap 14 Basophils # 0.0 Basophils % 0.5 Blood Morphology Comment Blood Urea Nitrogen 42 H Calcium Level 8.0 L Carbon Dioxide Level 20 L Chloride Level 108 Cholesterol Level 196 Cholesterol/HDL Ratio 3.6 Creatinine 4.72 H Eosinophils # 0.2 Eosinophils % 2.5 Glucose Level 88 HDL Cholesterol 53 Hematocrit 34.7 L Hemoglobin 12.1 LDL Cholesterol, Calculated 116 Lymphocytes # 2.4 Lymphocytes % 33.8 Magnesium Level 2.3 Mean Corpuscular Hemoglobin 31.8 Mean Corpuscular Hemoglobin Concent 34.9 Mean Corpuscular Volume 91.2 Mean Platelet Volume 8.4 Monocytes # 0.4 Monocytes % 5.6 Neutrophils # 4.2 Neutrophils % 57.6 Nucleated Red Blood Cells # 0.0 Nucleated Red Blood Cells % 0.0 Phosphorus Level 6.1 H Platelet Count 234 Potassium Level 4.7 Red Blood Count 3.80 L Red Cell Distribution Width 15.6 H Sodium Level 137 Thyroid Stimulating Hormone (TSH) 16.800 H Triglycerides Level 137 White Blood Count 7.2 # Medications Medications Current Medications Lorazepam (Ativan) 0.5 mg Q8H PRN PO ANXIETY; Start 11/13/16 at 11:00 Ondansetron HCl (Zofran Inj) 4 mg Q6H PRN IV NAUSEA AND/OR VOMITING Last administered on 11/14/16 09:03; Admin Dose 4 MG; Start 11/13/16 at 11:00 Aspirin (Aspirin) 81 mg DAILY PO Last administered on 11/14/16 09:03; Admin Dose 81 MG; Start 11/14/16 at 09:00 Acetaminophen (Tylenol Tab) 650 mg Q6H PRN PO PAIN LEVEL 1-3 OR FEVER; Start at 11:00 Acetaminophen (Tylenol Supp) 650 mg Q6H PRN [place] PAIN LEVEL 1-3 OR FEVER; Start 11/13/16 at 11:00 Oxycodone/ Acetaminophen (Percocet (5/ 325)) 1 tab Q6H PRN PO PAIN LEVEL 4-6 Last administered on 11/13/16 20:11; Admin Dose 1 TAB; Start 11/13/16 at 11:00 Morphine Sulfate (morphine) 1 mg Q4H PRN IV PAIN LEVEL 7-10 Last administered on 11/14/16 01:19; Admin Dose 1 MG; Start 11/13/16 at 11:00 Docusate Sodium (Colace) 100 mg Q12H PRN PO CONSTIPATION; Start 11/13/16 at 11: 00 Bisacodyl (Dulcolax) 5 mg DAILY PRN PO CONSTIPATION; Start 11/13/16 at 11:00 Pantoprazole (Protonix Tab) 40 mg DAILY@06 PO Last administered on 11/14/16 05 :33; Admin Dose 40 MG; Start 11/14/16 at 06:00 Heparin Sodium (Porcine) (Heparin (5000 Units/0.5 ml)) 5,000 unit Q12 SC Last administered on 11/14/16 08:59; Admin Dose 5,000 UNIT; Start 11/13/16 at 21:00 Hydralazine HCl (Apresoline) 10 mg Q4 PRN IV SBP>160; Start 11/13/16 at 21:00 Hydralazine HCl (Apresoline) 25 mg Q8 PO Last administered on 11/13/16t 21:08; Admin Dose 25 MG; Start 11/13/16 at 22:00 LUIS CARLOS GIBSON MD Nov 14, 2016 12:12
--- NOTE | 2016-11-14 15:25 | CONS ---
Date/Time of Note Date/Time of Note DATE: 11/14/16 TIME: 15:24 Assessment/Plan Assessment/Plan Chief Complaint/Hosp Course Assessment: Status post fall - appears mechanical, not syncope Accelerated hypertension - improved with anti-hypertensive medications and pain control Diabetes mellitus Chronic kidney disease Recommendations: -echocardiogram showed LVEF 55-60%, mild diastolic dysfunction -no additional cardiac work up at this time -hydralazine 25mg PO Q8hr, additional IV PRN (patient does not remember her outpatient medications) Problems: Consultation Date/Type/Reason Admit Date/Time Nov 13, 2016 at 09:16 Initial Consult Date 11/14/16 Type of Consultation: Cardiology 24 HR Interval Summary Free Text/Dictation No acute events. Pain control improved. Detailed Summary Additional Comments 14 point review of systems without changes. Exam/Review of Systems Vital Signs Vitals Vital Signs Date Time Temp Pulse Resp B/P Pulse Ox O2 Delivery O2 Flow Rate FiO2 11/14/16 12:31 77 11/14/16 12:20 98.0 20 189/98 97 11/13/16 21:00 Nasal Cannula 2.0 Intake and Output 11/13/16 11/13/16 11/14/16 15:00 23:00 07:00 Intake Total 400 ml Output Total 1000 ml Balance -600 ml Exam Constitutional: alert, obese Psych: nl mood/affect, no complaints Head: atraumatic, normocephalic Eyes: nl conjunctiva, nl lids ENMT: nl external ears & nose, nl nasal mucosa & septum Neck: non-tender, supple, No jvd Respiratory: clear to auscultation, normal air movement Cardiovascular: regular rate and rhythm Gastrointestinal: non-tender, soft Musculoskeletal: nl extremities to inspection Extremities: No clubbing, No cyanosis, No edema Results Result Diagram: 11/14/16 0615 11/14/16 0615 Results 24 hrs Laboratory Tests Test 11/13/16 16:20 11/13/16 23:00 11/14/16 01:27 11/14/16 06:15 Creatine Kinase 63 54 Creatine Kinase Index 3.3 3.0 Creatinine Kinase MB (Mass) 2.06 1.62 Troponin I 0.022 0.017 Urine Bacteria OCCASIONAL Urine Bilirubin NEGATIVE Urine Clarity CLEAR Urine Color LT. YELLOW Urine Glucose 0.25% H Urine Hemoglobin 1+ H Urine Hyaline Casts OCCASIONAL Urine Ketones NEGATIVE Urine Leukocyte Esterase NEGATIVE Urine Microscopic RBC 2-5 Urine Microscopic WBC 2-5 Urine Nitrite NEGATIVE Urine Random Creatinine 89.45 Urine Random Sodium 59 Urine Specific [place] 1.020 Urine Squamous Epithelial Cells OCCASIONAL Urine Total Protein Urine Urobilinogen 0.2 E.U./dL Urine pH 6.5 Anion Gap 14 Basophils # 0.0 Basophils % 0.5 Blood Morphology Comment Blood Urea Nitrogen 42 H Calcium Level 8.0 L Carbon Dioxide Level 20 L Chloride Level 108 Cholesterol Level 196 Cholesterol/HDL Ratio 3.6 Creatinine 4.72 H Eosinophils # 0.2 Eosinophils % 2.5 Glucose Level 88 HDL Cholesterol 53 Hematocrit 34.7 L Hemoglobin 12.1 LDL Cholesterol, Calculated 116 Lymphocytes # 2.4 Lymphocytes % 33.8 Magnesium Level 2.3 Mean Corpuscular Hemoglobin 31.8 Mean Corpuscular Hemoglobin Concent 34.9 Mean Corpuscular Volume 91.2 Mean Platelet Volume 8.4 Monocytes # 0.4 Monocytes % 5.6 Neutrophils # 4.2 Neutrophils % 57.6 Nucleated Red Blood Cells # 0.0 Nucleated Red Blood Cells % 0.0 Phosphorus Level 6.1 H Platelet Count 234 Potassium Level 4.7 Red Blood Count 3.80 L Red Cell Distribution Width 15.6 H Sodium Level 137 Thyroid Stimulating Hormone (TSH) 16.800 H Triglycerides Level 137 White Blood Count 7.2 # Medications Medications Current Medications Lorazepam (Ativan) 0.5 mg Q8H PRN PO ANXIETY; Start 11/13/16 at 11:00 Ondansetron HCl (Zofran Inj) 4 mg Q6H PRN IV NAUSEA AND/OR VOMITING Last administered on 11/14/16 09:03; Admin Dose 4 MG; Start 11/13/16 at 11:00 Aspirin (Aspirin) 81 mg DAILY PO Last administered on 11/14/16 09:03; Admin Dose 81 MG; Start 11/14/16 at 09:00 Acetaminophen (Tylenol Tab) 650 mg Q6H PRN PO PAIN LEVEL 1-3 OR FEVER; Start at 11:00 Acetaminophen (Tylenol Supp) 650 mg Q6H PRN [place] PAIN LEVEL 1-3 OR FEVER; Start 11/13/16 at 11:00 Oxycodone/ Acetaminophen (Percocet (5/ 325)) 1 tab Q6H PRN PO PAIN LEVEL 4-6 Last administered on 11/13/16 20:11; Admin Dose 1 TAB; Start 11/13/16 at 11:00 Morphine Sulfate (morphine) 1 mg Q4H PRN IV PAIN LEVEL 7-10 Last administered on 11/14/16 01:19; Admin Dose 1 MG; Start 11/13/16 at 11:00 Docusate Sodium (Colace) 100 mg Q12H PRN PO CONSTIPATION; Start 11/13/16 at 11: 00 Bisacodyl (Dulcolax) 5 mg DAILY PRN PO CONSTIPATION; Start 11/13/16 at 11:00 Pantoprazole (Protonix Tab) 40 mg DAILY@06 PO Last administered on 11/14/16 05 :33; Admin Dose 40 MG; Start 11/14/16 at 06:00 Heparin Sodium (Porcine) (Heparin (5000 Units/0.5 ml)) 5,000 unit Q12 SC Last administered on 11/14/16 08:59; Admin Dose 5,000 UNIT; Start 11/13/16 at 21:00 Hydralazine HCl (Apresoline) 10 mg Q4 PRN IV SBP>160; Start 11/13/16 at 21:00 Hydralazine HCl (Apresoline) 25 mg Q8 PO Last administered on 11/14/16 13:32; Admin Dose 25 MG; Start 11/13/16 at 22:00 CLIFTON BARRETO MD Nov 14, 2016 15:25
--- NOTE | 2016-11-15 08:21 | DS ---
DATE OF ADMISSION: 11/13/2016 DATE OF DISCHARGE: 11/14/2016 PROFESSIONAL HEALTHCARE REPRESENTATIVE: 1. Diabetes Clinical Manager. 2. Liquor Blender. DISCHARGE DIAGNOSES: 1. Status post fall. 2. Low back pain. 3. Atypical chest pains, likely secondary to low back pain. Acute coronary syndrome was ruled out with negative troponin and negative EKG. 4. Chronic renal insufficiency. Nephrology was consulted. Follow nephrology as outpatient. 5. Essential hypertension, better controlled. 6. Leukocytosis, likely reactive, resolved. 7. Congestive heart failure. The patient does not qualify for ALMITA inhibitor or diuretics secondary to chronic renal insufficiency. Follow up with nephrology as outpatient. 8. Hypothyroidism. Continue levothyroxine. The patient has an appointment with nephrology for ree valuation the patient's dosage has to be increased secondary to TSH is abnormal. MEDICATIONS: 1. Aspirin. 2. Hydralazine. 3. Renagel. 4. Simvastatin. 5. Percocet 6. Levothyroxine. ALLERGIES: NO KNOWN DRUG ALLERGIES. IMAGING: X-ray of lumbar spine showed decreased bone density without radiographic evidence of acute fracture. VITAL SIGNS: Temperature 98.7, pulse 76, respiration 20, blood pressure 106/86, oxygen saturation 9 8%. LABORATORY DATA: Sodium 137, potassium 4.7, chloride 108, bicarbonate 20, BUN 42, creatinine 4.72, glucose 88, calcium 8.0, magnesium 2.0. Troponin negative x4. Triglyceride 137, total cholesterol 196, LDL 168, HDL 53. TSH 16, WBC 7.3, hemoglobin 12.1, hematocrit 34.7, platelets 234. HOSPITAL COURSE: This is a 46-year-old female with past medical history of hypertension, chronic ki dney disease, hypothyroidism, very poor historian, who was at a gas station and had a slip and fall on her backside. The patient started complaining of back pain and was brought into the emergency ro om. At that time, the patient's complaint was mild chest discomfort. EKG showed some artifact and possible ST elevation, although after evaluation with cardiology on-call, STEMI was ruled out. The patient's serial troponin was found to be negative. A 2-D echocardiogram was obtained which showed normal ejection fraction 55% to 60%. The patient was placed on aspirin. The lipid panel was evalua melvin. Her x-ray of the spine did not show any fracture. The patient was placed on morphine for pain medication. The patient, as stated above, is a very poor historian, and her home medications are u nknown. The pharmacy at this time is not available. They are closed on weekends, and she does not have anybody that can bring her medications. During this course of hospitalization, for her high bl ood pressure, the patient was started on hydralazine on which her blood pressure has been better con trolled. Regarding the pain, the patient has been placed on Percocet. Her TSH was found to be elev ated, and endocrinology has been consulted. At this time, the patient does not know the dosage of h er thyroid medication, although she stated that the patient has an appointment with her nephrology t his upcoming Wednesday which he is the one who is following up her hypothyroidism and will adjust th e medication. At this time, the patient acute coronary syndrome has been ruled out by negative trop onin. A 2-D echocardiogram is within normal limits. The patient does have a history of chronic corina al insufficiency which has been followed up with tape duplicator as outpatient. The patient was seen a nd evaluated by nephrology during this course of hospitalization. At this time, the patient is medi fan stable to be discharged home with a close followup with nephrology as outpatient. The total amount of time that was spent for evaluation and patient discharge workup was 40 minutes. Dictated By: YU PINK/NTS Conf#: [id number] DID#: [id number]
[2016-11-16 18:20] LABS: CREATININE, RANDOM URINE 105 mg/dL (20-320); MICROALBUMIN >600.0 mg/dL
== END 2016-11-14 16:30 | disposition home or self-care (01) | DRG 563 ==
LOC: E/R 06:57 → TEL 09:16
PROVIDERS: ADMIT Family Medicine; ATTEND Family Medicine
DX: S39.012A Strain of muscle, fascia and tendon of lower back, initial encounter (principal); E11.22 Type 2 diabetes mellitus with diabetic chronic kidney disease; N17.9 Acute kidney failure, unspecified; I12.0 Hypertensive chronic kidney disease with stage 5 chronic kidney disease or end stage renal disease; I50.9 Heart failure, unspecified; N18.5 Chronic kidney disease, stage 5; S09.90XA Unspecified injury of head, initial encounter; F41.9 Anxiety disorder, unspecified; R07.9 Chest pain, unspecified; E03.9 Hypothyroidism, unspecified; Z79.82 Long term (current) use of aspirin; Y92.524 Gas station as the place of occurrence of the external cause; W18.30XA Fall on same level, unspecified, initial encounter
CPT/HCPCS: 36415; 70450; 72100; 80048; 80053; 80061; 81001; 81003; 82043; 82550; 82553; 83735; 83880; 84100; 84155; 84300; 84443; 84484; 85025; 85610; 85730; 93005; 93306; 96374; J0360; J2270; J2405

== ENCOUNTER 2018-06-08 09:50 | Day surgery (SDC) | END 2018-06-08 21:30 | disposition home or self-care (01) ==

== ENCOUNTER 2018-06-08 14:00 | Day surgery (SDC) | END 2018-06-09 17:49 | disposition home or self-care (01) ==

== ENCOUNTER 2018-07-06 12:18 | Day surgery (SDC) | END 2018-07-06 17:53 | disposition home or self-care (01) ==

== ENCOUNTER → 2018-09-02 | Outpatient (CLI) | END | disposition home or self-care (01) ==